=== PATIENT | male | born 1965 | race Caucasian/White ===

== ENCOUNTER → 2020-08-23 15:03 | Outpatient (CLI) | payer MEDICARE, SELFPAY ==
--- NOTE | 2020-08-23 15:12 | RAD_ITS ---
STUDY: X-RAY EXAMINATION: SCOLIOSIS SERIES REASON FOR EXAM: Male, 55 years old. scoliosis TECHNIQUE: 1 view(s) of the thoracolumbar spine were obtained in the upright standing position. COMPARISON: None. FINDINGS: There is multilevel endplate spondylosis of the thoracic vertebrae. There is multilevel disc space narrowing of the thoracic spine. There is multilevel endplate spondylosis of the lumbar vertebrae. There is multilevel disc space narrowing of the lumbar spine. RAD/Scoliosis 1 view IMPRESSION: No scoliosis Electronically Signed: Antwan Chan MD at 8:11 EDT Tel , Service support ,
--- NOTE | 2020-08-23 15:12 | RAD_ITS ---
STUDY: X-RAY - LUMBAR SPINE REASON FOR EXAM: Male, 55 years old. DDD -- back pain TECHNIQUE: 3 view(s) of the lumbar spine were obtained. COMPARISON: 02/19/2017. FINDINGS: Normal lumbar lordosis. There is multilevel endplate spondylosis of the lumbar vertebrae. There is multi-level degenerative disc disease with multi-level disc space narrowing. There is atherosclerotic calcification of the abdominal aorta. RAD/Lumbar Spine 2 or 3 Views IMPRESSION: Degenerative changes of the spine. Electronically Signed: Antwan Chan MD at 10:44 EDT Tel , Service support ,
--- NOTE | 2020-08-23 15:12 | RAD_ITS ---
STUDY: X-RAY - CERVICAL SPINE REASON FOR EXAM: Male, 55 years old. DDD -- surgery 5 yrs ago TECHNIQUE: 5 view(s) of the cervical spine were obtained. COMPARISON: 02/19/2017 FINDINGS: Normal cervical lordosis. There is multi-level endplate spondylosis. There is multi-level degenerative disc disease with multilevel disc space narrowing. There is stable anterior fusion at C6/C7. The soft tissue structures are unremarkable. RAD/Cerv Spine 4 or 5 Views IMPRESSION: Degenerative changes of the spine. C6/C7 anterior fusion. Electronically Signed: Antwan Chan MD at 8:09 EDT Tel , Service support ,
[2020-08-23 18:11] LABS: Vitamin B12 596 pg/mL (211-911)
[2020-08-23 22:46] LABS: Chlamydia Trachomatis by PCR Negative (Negative); Neisserai gonorrhoeae by PCR Negative (Negative); Probe Check PASS; Sample Adequacy Control PASS; Specimen Processing Control PASS
[2020-08-31 12:26] LABS: Vitamin B1, Thiamine 167.2 nmol/L (66.5-200.0)
== END ==
PROVIDERS: PCP Family Medicine; Referring Provider Family Medicine; Visit Provider Family Medicine
DX: M41.9 Scoliosis, unspecified (principal); M54.2 Cervicalgia; G62.9 Polyneuropathy, unspecified; N41.9 Inflammatory disease of prostate, unspecified
CPT/HCPCS: 36415; 72050; 72081; 72100; 82607; 84425; 87086; 87491; 87591